=== PATIENT | female | born 1955 | race Caucasian/White ===

== ENCOUNTER 2017-04-08 13:18 | Emergency (ER) | payer MEDICARE, OTHER, MEDICAID ==
--- NOTE | 2017-04-08 14:09 | ERNOTE ---
Psychological HPI - Date Date of Service: 04/08/17 - General Chief Complaint: Anxiety Source: Reports: patient, family - Immun/Allergies/Home Medications Allergies/Adverse Reactions: Allergies No Known Drug Allergies Allergy (Verified 04/08/17 13:28) Home Medications: HOME MEDICATIONS Calamine/Zinc Oxide [Calamine Lotion] 1 appl TP PRN PRN 09/07/16 [Last Taken Unknown] Fluticasone Propionate [Flonase] 2 spray NS DAILY PRN 09/07/16 [Last Taken Unknown] Levothyroxine Sodium [Synthroid] 50 mcg PO DAILY 09/07/16 [Last Taken Unknown] Lisinopril [Zestril] 20 mg PO DAILY 09/07/16 [Last Taken Unknown] Lorazepam [Ativan] 2 mg PO HS 09/07/16 [Last Taken Unknown] Magnesium Hydroxide [Milk Of Magnesia] 30 ml PO DAILY PRN 09/07/16 [Last Taken Unknown] Meloxicam [Mobic] 7.5 mg PO DAILY 09/07/16 [Last Taken Unknown] Multivitamins [Multivitamin Celio] 1 cap PO DAILY 09/07/16 [Last Taken Unknown] [place]-3 Fatty Acids [Fish Oil] 500 mg PO DAILY 09/07/16 [Last Taken Unknown] Omeprazole 20 mg PO DAILY 09/07/16 [Last Taken Unknown] Polyethylene Glycol 3350 [Miralax] 17 gm PO DAILY 09/07/16 [Last Taken Unknown] Sennosides [Senna] 2 tab PO HS 09/07/16 [Last Taken Unknown] Simvastatin [Zocor] 40 mg PO HS 09/07/16 [Last Taken Unknown] amLODIPine BESYLATE [Norvasc] 5 mg PO DAILY 09/07/16 [Last Taken Unknown] lamoTRIgine [Lamictal] 150 mg PO DAILY 09/07/16 [Last Taken Unknown] metFORMIN HCL [Glucophage] 500 mg PO BIDWM 09/07/16 [Last Taken Unknown] Docusate Sodium 100 mg PO BID 04/08/17 [Last Taken Unknown] - History of Present Illness Narrative: 61-year-old female presents to the emergency room having an anxiety attack. Patient states that she found out she was the victim of an indeterminate scan and had given them her name is bank information and social. Number and was very upset. She did take 2 mg of Ativan before her arrival. It is still visibly shaken Time Seen by Provider: 04/08/17 13:50 Arrived by: Reports: private car Onset/duration: Reports: sudden onset Situational Problems: Reports: other - money Associated Symptoms: Reports: agitated Prior Treament: Reports: similar symptoms before Review of Systems - Review of Systems Constitutional: Present: See HPI EYE: Present: no symptoms reported ENT: Present: no symptoms reported Respiratory: Present: no symptoms reported Cardiology: Present: no symptoms reported Gastrointestinal/Abdominal: Present: no symptoms reported Genitourinary: Present: no symptoms reported Musculoskeletal: Present: no symptoms reported Skin: Present: no symptoms reported Neurological: Present: See HPI, anxiety Endocrine: Present: no symptoms reported Hematologic/Lymphatic: Present: no symptoms reported Psych: Present: anxiety All Other Systems: All systems neg except as marked - Patient's Past Medical History Patient History - Medical: Anxiety, Arthritis, Diabetes Type 2, Depression, GERD , Hypothyroidism, UTI'S, Other Patient History - Cardiac/Respiratory: Hypertension, Hyperlipidemia Patient History - Cancer: No Hx of Cancer Patient History - Surgical Procedures: Cholecystectomy, EGD, Other Patient History - Other: None - Family History Mother Family History - Medical: , No pertinent hx Family History - Cardiac/Respiratory: Coronary Heart Disease, CVA/Stroke Father Family History - Medical: , Diabetes Type 2 Family History - Cardiac/Respiratory: No pertinent hx - Social History Living Situations: spouse Abuse History: No History of abuse Psych History: Hx of Anxiety, Hx of Depression, Current tx/ever been on anti- depressants or anti-anxiety meds Smoking Status: Never smoker Have you smoked in the past 12 months: No Alcohol Use: none Drug Use: none - Immunizations Immunizations Up to Date: Yes Hx Pneumococcal Vaccination: No History of Influenza Vaccine: Yes Physical Exam - Physical Exam Narrative: Upon entering the room to examine patient she had a calm demeanor. She stated that the medication she took before she came in which was Ativan kicked in and she is feeling better. Patient stated she was not anxious and she does not appear in distress at this time. General Appearance: Present: wd/wn, alert, no apparent distress Eye Exam: Normal inspection: bilateral Ears, Nose, Throat: Present: normal ENT inspection, normal pharynx Neck: Present: normal inspection, nontender Respiratory: Present: no respiratory distress, normal breath sounds, lungs clear Cardiovascular/Chest: Present: regular rate, rhythm, no murmur, normal peripheral pulses Gastrointestinal/Abdominal: Present: nontender, soft Extremity Exam: Present: normal inspection, normal range of motion, no edema Neurological Exam: Present: alert, oriented, normal mood/affect, no motor/ sensory deficits Skin Exam: Present: normal color, warm/dry ED Progress - Vital Signs Patient's Vital Signs:: I have reviewed the patient's vital signs. Vital Signs: Vital Signs 04/08/17 13:23 Temperature 36.9 C Pulse Rate 110 H Respiratory 14 Rate Blood Pressure 135/110 O2 Sat by Pulse 99 Oximetry - Progress/Reassessment Chief Complaint: Anxiety Progress:: Improved Departure Clinical Impression: Anxiety - Departure Disposition: Home self-care Condition: Stable Instructions: Panic Attacks, [id number] Additional Instructions: Continue any previous home medications. Follow-up with her primary care in the next 2-3 days if needed return to the emergency room if symptoms return. Referrals: Quita Combs MD [Primary Care Provider] -
--- OUTSIDE RECORDS SUMMARY | 2017-04-08 14:10 | XMS REPORT | Continuity of Care Document ---
:1955 Author Organization [facility] ([facility]) Address [address] [place] [address] Phone [phone] Care Team Providers Name Role Phone ElizabethedwinafannyQuita Primary Care Provider [phone] Source Comments This disclosure is being made pursuant to the Care Everywhere program, applicable federal and state laws, and may not contain all informaitonavailable regarding this patient.[facility] ([facility]) Active Allergies and Adverse Reactions Allergen Noted Date Severity Reactions Comments No Known Allergies 12/19/2012 NO REACTION Current Medications Prescription Sig. Disp. Refills Start Date End Date Status multivitamin tablet Take 1 Tab by mouth Active daily. diclofenac 50 mg EC Take 50 mg by mouth Active tablet 2 times daily. venlafaxine 150 mg XR Take 150 mg by mouth Active capsule daily. omega-3 fatty Take 1,000 mg by Active acids-vitamin E (FISH mouth daily. OIL) 1,000 mg capsule levothyroxine 50 mcg Take 50 mcg by mouth Active tablet every morning before breakfast. lisinopril 10 mg Take 2.5 mg by mouth Active tablet daily. omeprazole 20 mg Take 20 mg by mouth Active extended release daily. capsule pioglitazone 15 mg Take 15 mg by mouth Active tablet daily. ezetimibe (ZETIA) 10 Take 10 mg by mouth Active mg tablet daily. oxybutynin 5 mg tablet Take 2 Tabs by mouth 120 Tab 11 02/08/2013 Active 2 times daily. Indications: INCREASED URINARY FREQUENCY fesoterodine (TOVIAZ) Take 1 Tab by mouth 30 Tab 11 03/24/2013 Active 4 mg XR tablet daily. Indications: INCREASED URINARY FREQUENCY aspirin 81 mg tablet Take 162 mg by mouth Active daily. amitriptyline 10 mg Take 0.5 Tabs by 30 Tab 11 08/16/2013 Active tablet mouth at bedtime. Titrate to 10 mg in 7 days if symptoms persist Indications: Interstitial cystitis Active Problems Problem Noted Date Urgency of urination 12/21/2012 Urinary frequency 12/21/2012 Diabetes mellitus 12/21/2012 HTN (hypertension) 12/21/2012 Varicose veins 12/21/2012 Osteoarthritis 12/21/2012 Ankylosing spondylitis 12/21/2012 Depression 12/21/2012 Anxiety 12/21/2012 Dysuria 12/21/2012 Social History Tobacco Use Types Packs/Day Years Used Date Former Smoker Cigarettes 1 15 Quit: 12/21/1985 Smokeless Tobacco: Never Used Alcohol Use Drinks/Week oz/Week Comments No Last Filed Vital Signs Vital Sign Reading Time Taken Blood Pressure 142/81 08/16/2013 1:59 PM CDT Pulse 54 08/16/2013 1:59 PM CDT Temperature 36.3 C (97.3 F) 08/16/2013 1:59 PM CDT Respiratory Rate 18 08/16/2013 1:59 PM CDT Height 1.626 m (5' 4.02") 08/16/2013 1:59 PM CDT Weight 91.808 kg (202 lb 6.4 oz) 08/16/2013 1:59 PM CDT Body Mass Index 34.72 08/16/2013 1:59 PM CDT Oxygen Saturation 98% 08/16/2013 1:59 PM CDT Plan of Care Health Maintenance Due Date Last Done Comments HCV Screening 1955 Hepatitis B Vaccine (1 of 3 - Primary Series) 1955 Tdap Vaccine 1964 DIABETIC: Cholesterol 1971 Diabetic: Hdl 1971 DIABETIC: Hemoglobin A1C 1971 Diabetic: Ldl 1971 DIABETIC: Microalbumin 1971 DIABETIC: Triglycerides 1971 Td Vaccine 1971 Pneumococcal Vaccine (1 of 1 - PPSV23) 1972 Cervical Cancer Screening 1983 Mammogram 1993 Colonoscopy 2003 DIABETIC: Foot Exam 08/16/2013 DIABETIC: Retinal Eye Exam 08/16/2013 Zoster Vaccine 2013 Influenza Vaccine: Seasonal (#1) 06/01/2016 Results from Last 3 Months Not on file
[2017-04-08 14:24] VITALS: BP 135/91
== END 2017-04-08 14:10 | disposition home or self-care (01) ==
LOC: ER 13:18
DX: F41.1 Generalized anxiety disorder (principal); F43.0 Acute stress reaction; M19.90 Unspecified osteoarthritis, unspecified site; E11.9 Type 2 diabetes mellitus without complications; K21.9 Gastro-esophageal reflux disease without esophagitis; E03.9 Hypothyroidism, unspecified; Z87.440 Personal history of urinary (tract) infections; I10 Essential (primary) hypertension; E78.5 Hyperlipidemia, unspecified

== ENCOUNTER 2017-06-10 11:09 | Emergency (ER) | payer MEDICARE, OTHER, MEDICAID ==
[2017-06-10 11:59] LABS: Hematocrit 42.1 % (37.0-47.0); Hemoglobin 14.5 gm/dL (12.5-16.0); Mean Cell Volume 89.4 fl (78-100); Mean Corpuscular Hemoglobin 30.8 pg (27-31); Mean Corpuscular Hgb Conc 34.4 g/dl (32-36); Mean Platelet Volume 9.3 fl (6.0-9.5); Neutrophil # 3.3 K/mm3 (1.3-6.0); Neutrophil % 56.1 % (42-75.0); Platelet Count 207 K/mm3 (150-450); Red Blood Count 4.71 M/mm3 (4.2-5.4); White Blood Count 5.9 K/mm3 (4.0-10.5)
--- NOTE | 2017-06-10 12:00 | ERNOTE ---
Medical Problem HPI - Narrative Date of Service: 06/10/17 - General Chief Complaint: General Assessment Time Seen by Provider: 06/10/17 11:30 Source: patient Exam Limitations: no limitations - Immun/Allergies/Home Medications Immunizations: IMMUNIZATION HX Immunizations Up to Date Yes History of Influenza Vaccine Yes Hx Pneumococcal Vaccination Yes Allergies/Adverse Reactions: Allergies No Known Drug Allergies Allergy (Verified 06/10/17 11:27) Home Medications: HOME MEDICATIONS Lisinopril [Zestril] 20 mg PO DAILY 09/07/16 [Last Taken Unknown] Lorazepam [Ativan] 1 mg PO HS 09/07/16 [Last Taken Unknown] Omeprazole 20 mg PO DAILY 09/07/16 [Last Taken Unknown] Simvastatin [Zocor] 40 mg PO HS 09/07/16 [Last Taken Unknown] lamoTRIgine [Lamictal] 150 mg PO DAILY 09/07/16 [Last Taken Unknown] Amlodipine Besylate 5 mg PO DAILY 06/10/17 [Last Taken Unknown] Citalopram Hydrobromide [Citalopram HBr] 20 mg PO DAILY 06/10/17 [Last Taken Unknown] sitaGLIPtin PHOSPHATE [Januvia] 50 mg PO DAILY 06/10/17 [Last Taken Unknown] - History of Present History Narrative: Pt. comes in with c/o low heart beat this morning when she was checking her blood pressure due to feeling mildly dizzy and weak. Pt. states that she has been ill with incontinence of bowels and loose bowels for the past three months. Pt. denies any SOB, CP, NVD, fever. Pt. denies states that she notified her PCP and was told to come to the ER. Pt. has a hx of HTN and tachycardia but is on medications for that and her baseline is 60-70 documented for her HR. Review of Systems - Review of Systems Constitutional: Present: weakness - mild, fatigue. Absent: recent illness, fever, chills EYE: Present: no symptoms reported ENT: Present: no symptoms reported Respiratory: Present: no symptoms reported. Absent: shortness of breath, cough , wheezing Cardiology: Present: no symptoms reported. Absent: chest pain, palpitations, edema Gastrointestinal/Abdominal: Present: no symptoms reported Genitourinary: Present: no symptoms reported Musculoskeletal: Present: no symptoms reported. Absent: back pain, joint pain Neurological: Present: dizziness/light-headedness - mild. Absent: headache, numbness, tingling All Other Systems: All systems neg except as marked - Patient's Past Medical History Patient History - Medical: Anxiety, Arthritis, Diabetes Type 2, Depression, GERD , Hypothyroidism, UTI'S, Other Patient History - Cardiac/Respiratory: Hypertension, Hyperlipidemia Patient History - Cancer: No Hx of Cancer Patient History - Surgical Procedures: Cholecystectomy, EGD, Other Patient History - Other: None LMP (females 10-50): post menopausal - Family History Mother Family History - Medical: , No pertinent hx Family History - Cardiac/Respiratory: Coronary Heart Disease, CVA/Stroke Father Family History - Medical: , Diabetes Type 2 Family History - Cardiac/Respiratory: No pertinent hx - Social History Living Situations: home Abuse History: No History of abuse Psych History: Hx of Anxiety, Hx of Depression, Current tx/ever been on anti- depressants or anti-anxiety meds Smoking Status: Never smoker Alcohol Use: none Drug Use: none - Immunizations Immunizations Up to Date: Yes Hx Pneumococcal Vaccination: Yes History of Influenza Vaccine: Yes Physical Exam - Physical Exam General Appearance: Present: wd/wn, alert, no apparent distress Head Exam: Present: normal inspection, no evidence of injury Eye Exam: Normal inspection: bilateral, PERRL: bilateral, EOMI: bilateral Ears, Nose, Throat: Present: normal ENT inspection, normal pharynx Neck: Present: normal inspection, nontender, supple, full range of motion. Absent: lymphadenopathy (R), lymphadenopathy (L) Respiratory: Present: no respiratory distress, normal breath sounds, no accessory muscle use, chest nontender, lungs clear Cardiovascular/Chest: Present: regular rate, rhythm, no murmur, normal peripheral pulses Gastrointestinal/Abdominal: Present: normal bowel sounds, nontender, nondistended, soft, no organomegaly Rectal Exam: Present: nontender, decreased tone Back Exam: Present: normal inspection, normal range of motion, no CVA tenderness , no vertebral tenderness Extremity Exam: Present: normal inspection, non-tender, normal range of motion, no edema Neurological Exam: Present: alert, oriented, normal mood/affect, no motor/ sensory deficits, 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 Absent: pallor, skin rash ED Progress - Date and Time Seen: Date and Time: 06/10/17 13:[address] Combs and he does not feel that pt. needs admission but will place on 24 holter and have her follow up in his office tomorrow. - Results and Orders Patient's Lab Results:: I have reviewed the patient's lab results. - Vital Signs Patient's Vital Signs:: I have reviewed the patient's vital signs. Vital Signs: Vital Signs 06/10/17 11:15 Temperature 36.5 C Pulse Rate 49 L Respiratory 16 Rate Blood Pressure 127/73 O2 Sat by Pulse 100 Oximetry - EKG EKG: other - Sinus bradycardia, no acute ST changes EKG read: Reviewed by me EKG Comments: Interp by Dr Thompson. - Progress/Reassessment Chief Complaint: General Assessment Progress:: Unchanged Departure - Departure Clinical Impression: Bradycardia Disposition: Home self-care Condition: Fair Instructions: Bradycardia Additional Instructions: Please follow up with primary provider in 2-3 days Referrals: Quita Combs MD [Primary Care Provider] -
[2017-06-10 12:20] LABS: Urine Bilirubin Negative (NEGATIVE); Urine Ketone Negative (NEGATIVE); Urine Nitrite Negative (NEGATIVE); Urine Protein Negative (NEGATIVE); Urine Specific Gravity 1.015 SP.GR. (1.005-1.010); Urine Urobilinogen Normal (NORMAL); Urine pH 5.5 pH (5.0-7.0)
[2017-06-10 12:21] LABS: ALT 21 U/L (19-67); AST 14 U/L (0-48); Albumin * 4.1 gm/dl (3.4-5.0); Alkaline Phosphatase * 66 U/L (50-170); Anion Gap 16.2 mmol/L (6.8-13.8); BUN/Creatinine Ratio 18.8 (9.0-21.6); Bilirubin, Total 0.5 mg/dL (0.0-1.1); Blood Urea Nitrogen 22 mg/dL (3-23); Ca. Corrected For Albumin 9.1 mg/dL (8.4-10.2); Calcium * 9.5 mg/dL (7.9-10.9); Carbon Dioxide 25.3 mmol/L (24-32.6); Chloride 102 mmol/L (97-106); Glucose * 111 mg/dL (70-110); Phosphorus 4.2 mg/dL (2.2-4.2); Potassium 4.5 mmol/L (3.4-4.6); Sodium 139 mmol/L (132-142); T4 Free * 1.03 ng/dL (0.76-1.46); TSH * 1.817 uIU/mL (0.358-3.74); Total Protein 7.4 gm/dL (6.2-8.2); Troponin I Less than 0.017 ng/ml (0.00-0.10)
[2017-06-10 12:35] LABS: Urine Blood 5 /ul (NEGATIVE)
[2017-06-10 12:36] LABS: Urine Appearance Slightly Cloudy; Urine Bacteria TRACE; Urine Color Yellow
[2017-06-11 16:28] VITALS: BP 128/75
== END 2017-06-10 14:21 | disposition home or self-care (01) ==
LOC: ER 11:09
DX: R00.1 Bradycardia, unspecified (principal); F41.8 Other specified anxiety disorders; E11.9 Type 2 diabetes mellitus without complications; K21.9 Gastro-esophageal reflux disease without esophagitis; E03.9 Hypothyroidism, unspecified; I10 Essential (primary) hypertension; E78.5 Hyperlipidemia, unspecified

== ENCOUNTER 2017-11-11 09:51 | Emergency (ER) | payer MEDICARE, OTHER, MEDICAID ==
--- NOTE | 2017-11-11 10:45 | ERNOTE ---
Lower Extremity HPI - Narrative Date of Service: 11/11/17 - General Lower Extremities Pain: foot: left Time Seen by Provider: 11/11/17 10:36 Source: patient, RN notes reviewed Exam Limitations: no limitations - Immun/Allergies/Home Medications Immunizations: IMMUNIZATION HX Immunizations Up to Date Yes History of Influenza Vaccine Yes Hx Pneumococcal Vaccination No Allergies/Adverse Reactions: Allergies Allergy/AdvReac Type Severity Reaction Status Date / Time No Known Drug Allergies Allergy Verified 11/11/17 10:08 Home Medications: HOME MEDICATIONS Lisinopril [Zestril] 20 mg PO DAILY 09/07/16 [Last Taken Unknown] Lorazepam [Ativan] 1 mg PO HS 09/07/16 [Last Taken Unknown] Simvastatin [Zocor] 40 mg PO HS 09/07/16 [Last Taken Unknown] lamoTRIgine [Lamictal] 150 mg PO DAILY 09/07/16 [Last Taken Unknown] Amlodipine Besylate 5 mg PO DAILY 06/10/17 [Last Taken Unknown] Citalopram Hydrobromide [Citalopram HBr] 20 mg PO DAILY 06/10/17 [Last Taken Unknown] Ranitidine HCl [Zantac] 150 mg PO BID 11/11/17 [Last Taken Unknown] glipiZIDE [Glipizide] 5 mg PO DAILY 11/11/17 [Last Taken Unknown] - History of Present Illness Narrative: 62 year old female presents to the ED for pain in the plantar surface of her left foot. This began last evening when she was walking barefoot down her stairs into her basement. She found a small screw and a small rock on her floor that she may have stepped on, but does not have any puncture wound on the foot. Occurred: yesterday Location of Incident: home Associated Symptoms: Denies: unable to bear weight Other Injuries: Reports: none Subsequent Symptoms: Denies: sensory loss, numbness, motor loss Prior Treament: Denies: similar symptoms before Review of Systems - Review of Systems Constitutional: Absent: fever, chills, malaise EYE: Present: no symptoms reported ENT: Present: no symptoms reported Respiratory: Present: no symptoms reported Cardiology: Present: no symptoms reported Gastrointestinal/Abdominal: Present: no symptoms reported Genitourinary: Present: no symptoms reported Musculoskeletal: Absent: joint pain, joint swelling Skin: Absent: lesions, lumps, change in color Neurological: Absent: weakness, numbness, tingling Endocrine: Present: no symptoms reported Hematologic/Lymphatic: Present: no symptoms reported Psych: Present: no symptoms reported - Patient's Past Medical History Patient History - Medical: Anxiety, Arthritis, Diabetes Type 2, Depression, GERD , Hypothyroidism, Renal Disease, UTI'S, Other Patient History - Cardiac/Respiratory: Hypertension, Hyperlipidemia Patient History - Cancer: No Hx of Cancer Patient History - Surgical Procedures: Cholecystectomy, EGD, Other Patient History - Other: None LMP (females 10-50): Menopausal - Family History Mother Family History - Medical: , No pertinent hx Family History - Cardiac/Respiratory: Coronary Heart Disease, CVA/Stroke Father Family History - Medical: , Diabetes Type 2 Family History - Cardiac/Respiratory: No pertinent hx - Social History Living Situations: home Abuse History: No History of abuse Psych History: Hx of Anxiety, Hx of Depression, Current tx/ever been on anti- depressants or anti-anxiety meds Smoking Status: Never smoker Alcohol Use: none Drug Use: none - Immunizations Immunizations Up to Date: Yes Hx Pneumococcal Vaccination: No History of Influenza Vaccine: Yes Physical Exam - Physical Exam General Appearance: Present: wd/wn, alert, no apparent distress Head Exam: Present: normal inspection, no evidence of injury Respiratory: Present: no respiratory distress, no accessory muscle use Cardiovascular/Chest: Present: normal peripheral pulses Peripheral Pulses: N=norm/S=strong/W=weak/B=bound/A=absent: Dorsalis-pedis (L): Strong Extremity Exam: Present: normal range of motion, no edema, bony tenderness - over plantar surface of left 1st metatarsal head, no redness, skin intact Neurological Exam: Present: alert, oriented, normal mood/affect, no motor/ sensory deficits Skin Exam: Present: normal color, warm/dry ED Progress - Vital Signs Patient's Vital Signs:: I have reviewed the patient's vital signs. Vital Signs: Vital Signs 11/11/17 10:00 Temperature 36.4 C L Pulse Rate 54 L Respiratory 16 Rate Blood Pressure 138/84 O2 Sat by Pulse 98 Oximetry - X-Ray X-Ray #1 X-Ray: foot Interpretation: Reviewed by me X-ray Comments: Foot 3 Views LT * FINDINGS/IMPRESSION: 1. No definable fracture lucency or cortical discontinuity. 2. Joint spaces are in gross normal alignment without subluxation or dislocation. Lisfranc joint grossly intact. Degenerative changes of the first MTP joints noted incidentally. 3. Lateral view demonstrates prominent calcaneal plantar heel spur as well as calcification adjacent to the heel spur. Enthesopathy overlying the posterior tubercle the calcaneus noted. 4. Soft tissue swelling is noted over the plantar aspect of the foot at the level of the metatarsophalangeal joints best seen on the lateral image however no definite signs of radiopaque or metallic foreign body. There is no evidence for soft tissue gas. Electronically signed by Mendez Lilly M.D.. - Progress/Reassessment Chief Complaint: Foot Injury/Pain Progress:: Unchanged Departure Clinical Impression: Foot contusion Qualifiers: Encounter type: initial encounter Laterality: left Qualified Code(s): S90.32XA - Contusion of left foot, initial encounter - Departure Disposition: Home self-care Condition: Good Instructions: Contusion, [id number] Additional Instructions: Tylenol for pain Limit weight bearing as needed Ice periodically for the first 48 hours Follow up with your doctor if symptoms have not improved in 7 to 10 days Referrals: Quita Combs MD [Primary Care Provider] -
[2017-11-11 11:12] VITALS: BP 130/104
== END 2017-11-11 11:36 | disposition home or self-care (01) ==
LOC: ER 09:51
DX: S90.32XA Contusion of left foot, initial encounter (principal); Z87.440 Personal history of urinary (tract) infections; E11.9 Type 2 diabetes mellitus without complications; E78.5 Hyperlipidemia, unspecified; F41.9 Anxiety disorder, unspecified; I10 Essential (primary) hypertension; W22.8XXA Striking against or struck by other objects, initial encounter; Y92.008 Other place in unspecified non-institutional (private) residence as the place of occurrence of the external cause